=== PATIENT | female | born 1985 | race Caucasian/White ===

== ENCOUNTER 2019-09-10 08:29 | Observation (INO) ==
[2019-09-10] MEDS ORDERED: 0.9 % Sodium Chloride 1,000 ML IVC ONE (08:38)
[2019-09-10] MEDS ORDERED: Ondansetron 4 MG/2 ML VIAL IVP ONE (08:39)
[2019-09-10 09:22] LABS: Basophils % 0.3 %; Hematocrit 42.7 % (35.3-44.9); Hemoglobin 13.8 g/dL (11.5-15.4); Immature Granulocytes % 0.2 % (0-4); Lymphocytes # 0.7 K/mcL (0.6-4.6); Mean Corpuscular HGB Conc 32.3 g/dL (31.6-35.5); Mean Corpuscular Hemoglobin 28.4 pg (28.0-33.3); Mean Corpuscular Volume 87.9 fL (83.0-100.0); Mean Platelet Volume 9.9 fL (9.4-12.4); Monocytes # 0.5 K/mcL (0.0-1.3); Neutrophils # 10.9 K/mcL (1.6-8.9); Platelet Count 237 K/mcL (140-400); Red Blood Count 4.86 M/mcL (3.82-4.97); Red Cell Distribution Width 12.4 % (11.5-14.5); Segmented Neutrophils % 89.5 %; White Blood Count 12.2 K/mcL (4.3-11.1)
[2019-09-10 09:27] LABS: Bacteria,Urine Few per hpf (None-Few); Bilirubin,Urine Negative (Negative); Blood,Urine Trace (Negative); Clarity,Urine Turbid (Clear); Color,Urine Yellow (Yellow); Glucose,Urine (UA) Normal (Normal); Hyaline Casts,Urine Few per lpf (None Seen); Ketones,Urine 10 mg/dL (Negative); Leukocyte Esterase,Urine Small (Negative); Mucus,Urine Few per lpf (None-Few); Nitrite,Urine Positive (Negative); PH,Urine 6.5 pH Units (5.0-8.0); Protein,Urine Trace mg/dL (Neg-Trace); Specific Gravity,Urine 1.026 (1.010-1.025); Squamous Epithelial Cell,Urine Few per hpf (None-Few); Urobilinogen,Urine Normal (Normal)
[2019-09-10 09:37] LABS: Amphetamine Screen,Urine Negative ng/mL (Cutoff=1000); Barbiturate Screen,Urine Negative ng/mL (Cutoff=200); Benzodiazepines Screen,Urine Positive ng/mL (Cutoff=200); Cannabinoid Screen,Urine Negative ng/mL (Cutoff = 50); Cocaine Screen,Urine Negative ng/mL (Cutoff= 300); Opiate Screen,Urine Negative ng/mL (Cutoff=300); Phencyclidine Screen,Urine Negative ng/mL (Cutoff=25)
[2019-09-10 09:57] LABS: Acetaminophen < 10 mcg/mL (10-20); Alanine Aminotransferase 29 Units/L (7-52); Albumin 3.9 g/dL (3.5-5.7); Albumin/Globulin Ratio 1.4 (1.1-2.2); Alkaline Phosphatase 65 Units/L (34-104); Aspartate Amino Transferase 68 Units/L (13-39); BUN/Creatinine Ratio 28 (6-26); Bilirubin,Direct 0.1 mg/dL (0.0-0.2); Bilirubin,Indirect 0.2 mg/dL (0.0-1.0); Bilirubin,Total 0.3 mg/dL (0.3-1.0); Blood Urea Nitrogen 17 mg/dL (6-20); Calcium 8.5 mg/dL (8.6-10.3); Carbon Dioxide 21 mEq/L (23-29); Chloride 109 mEq/L (98-107); Ethanol < 10 mg/dL (Less than 10); Globulin 2.7 g/dL (2.4-3.5); Glucose 146 mg/dL (70-105); Osmolality,Calculated 292 (280-300); Potassium 3.8 mEq/L (3.5-5.1); Salicylate < 2.5 mg/dL (15.0-30.0); Sodium 139 mEq/L (136-145); Thyroid Stimulating Hormone 0.753 mcIU/mL (0.340-5.600); Total Protein 6.6 g/dL (6.4-8.9); eGFR For African Americans > 60 (> 60); eGFR For Non-African Americans > 60 (> 60)
[2019-09-10] MEDS ORDERED: cefTRIAXone 1,000 MG in Water for inj. (sterile) 10 ML IVP ONE (10:13)
[2019-09-10] MEDS ORDERED: Azithromycin 500 MG in 0.9 % Sodium Chloride 250 ML IVPB ONE (10:24)
[2019-09-10] MEDS ORDERED: Ondansetron 4 MG/2 ML VIAL IVP PRN (10:39)
[2019-09-10] MEDS ORDERED: Naloxone 0.4 MG/ML INJ IVP PRN (10:39)
[2019-09-10] MEDS ORDERED: Acetaminophen 325 MG TABLET PO PRN (10:39)
[2019-09-10] MEDS ORDERED: *HR* LORazepam 2 MG/ML VIAL IVP PRN (10:44)
[2019-09-10] MEDS ORDERED: D5% in Water 1,000 ML IVC PRN (11:20)
[2019-09-10] MEDS ORDERED: Dextrose Gel 15 GM/37.5 ML TUBE PO PRN ×2 (11:20)
[2019-09-10] MEDS ORDERED: *HR* Dextrose 50 % in Water (Vial) 50 ML VIAL IVP PRN (11:20)
[2019-09-10] MEDS: Ringers Solution, Lactated 1,000 ML IVC SCH ×2 (14:07→14:11)
[2019-09-10] MEDS: Insulin LISPRO 300 UNITS/3 ML VIAL SQ SCH ×3 (14:10→23:21)
[2019-09-10] MEDS: D5% in Lactated Ringers 1,000 ML IVC SCH ×2 (14:11→20:24)
[2019-09-10 15:18] LABS: VBG Ionized Calcium 1.11 mmol/L (1.15-1.35)
[2019-09-10 15:57] LABS: Alanine Aminotransferase 33 Units/L (7-52); Albumin 3.6 g/dL (3.5-5.7); Alkaline Phosphatase 60 Units/L (34-104); Aspartate Amino Transferase 86 Units/L (13-39); BUN/Creatinine Ratio 29 (6-26); Bilirubin,Total 0.3 mg/dL (0.3-1.0); Blood Urea Nitrogen 15 mg/dL (6-20); Calcium 8.3 mg/dL (8.6-10.3); Carbon Dioxide 21 mEq/L (23-29); Chloride 111 mEq/L (98-107); Glucose 107 mg/dL (70-105); Osmolality,Calculated 291 (280-300); Potassium 3.7 mEq/L (3.5-5.1); Sodium 140 mEq/L (136-145); eGFR For African Americans > 60 (> 60); eGFR For Non-African Americans > 60 (> 60)
[2019-09-10 15:59] LABS: Albumin/Globulin Ratio 1.5 (1.1-2.2); Globulin 2.4 g/dL (2.4-3.5); Magnesium 2.1 mg/dL (1.6-2.6)
[2019-09-10 16:17] LABS: Creatine Kinase 5646 Units/L (30-223)
[2019-09-10] MEDS: Ampicillin/Sulbactam 1,500 MG in 0.9 % Sodium Chloride Mini Bag 100 ML IVPB SCH (23:24)
[2019-09-11] MEDS: D5% in Lactated Ringers 1,000 ML IVC SCH ×2 (03:33→15:00)
[2019-09-11 05:57] LABS: Basophils % 0.5 %; Eosinophils # 0.1 K/mcL (0.0-0.6); Eosinophils % 1.1 %; Hematocrit 37.9 % (35.3-44.9); Hemoglobin 12.3 g/dL (11.5-15.4); Immature Granulocytes % 0.2 % (0-4); Lymphocytes # 1.4 K/mcL (0.6-4.6); Lymphocytes % 16.3 %; Mean Corpuscular HGB Conc 32.5 g/dL (31.6-35.5); Mean Corpuscular Hemoglobin 28.5 pg (28.0-33.3); Mean Corpuscular Volume 87.7 fL (83.0-100.0); Mean Platelet Volume 9.9 fL (9.4-12.4); Monocytes # 0.5 K/mcL (0.0-1.3); Monocytes % 5.8 %; Neutrophils # 6.5 K/mcL (1.6-8.9); Platelet Count 213 K/mcL (140-400); Red Blood Count 4.32 M/mcL (3.82-4.97); Red Cell Distribution Width 12.5 % (11.5-14.5); Segmented Neutrophils % 76.1 %; White Blood Count 8.5 K/mcL (4.3-11.1)
[2019-09-11 05:57] LABS: VBG Ionized Calcium 0.93 mmol/L (1.15-1.35)
[2019-09-11 05:59] LABS: INR 1.1; Prothrombin Time 12.9 Seconds (9.4-12.1)
[2019-09-11] MEDS ORDERED: *HR* Enoxaparin 40 MG/0.4 ML SYRINGE SQ SCH (06:00)
[2019-09-11 06:01] LABS: Activated Partial Thrombo Time 30.2 Seconds (26.0-36.0)
[2019-09-11] MEDS: Insulin LISPRO 300 UNITS/3 ML VIAL SQ SCH (06:26)
[2019-09-11 06:29] LABS: Alanine Aminotransferase 39 Units/L (7-52); Albumin 3.2 g/dL (3.5-5.7); Albumin/Globulin Ratio 1.5 (1.1-2.2); Alkaline Phosphatase 54 Units/L (34-104); Aspartate Amino Transferase 76 Units/L (13-39); BUN/Creatinine Ratio 16 (6-26); Bilirubin,Total 0.3 mg/dL (0.3-1.0); Blood Urea Nitrogen 9 mg/dL (6-20); Calcium 8.3 mg/dL (8.6-10.3); Carbon Dioxide 26 mEq/L (23-29); Chloride 111 mEq/L (98-107); Creatine Kinase 3749 Units/L (30-223); Globulin 2.2 g/dL (2.4-3.5); Glucose 107 mg/dL (70-105); Magnesium 1.6 mg/dL (1.6-2.6); Osmolality,Calculated 293 (280-300); Phosphorous 2.3 mg/dL (2.7-4.5); Potassium 3.6 mEq/L (3.5-5.1); Sodium 142 mEq/L (136-145); Total Protein 5.4 g/dL (6.4-8.9); eGFR For African Americans > 60 (> 60); eGFR For Non-African Americans > 60 (> 60)
[2019-09-11] MEDS: Ampicillin/Sulbactam 1,500 MG in 0.9 % Sodium Chloride Mini Bag 100 ML IVPB SCH ×4 (06:37→23:41)
[2019-09-11] MEDS ORDERED: Calcium Gluconate 1gm/50mL 1 GM/50 ML BAG IVPB PRN (07:05)
[2019-09-11] MEDS ORDERED: *HR* LORazepam 2 MG/ML VIAL IVP PRN (09:17)
[2019-09-11] MEDS ORDERED: Naloxone 0.4 MG/ML INJ IVP PRN (09:17)
[2019-09-11] MEDS ORDERED: D5% in Water 1,000 ML IVC PRN (09:17)
[2019-09-11] MEDS ORDERED: *HR* Dextrose 50 % in Water (Vial) 50 ML VIAL IVP PRN (09:17)
[2019-09-11] MEDS ORDERED: Dextrose Gel 15 GM/37.5 ML TUBE PO PRN ×2 (09:17)
[2019-09-12 01:23] LABS: Basophils # 0.1 K/mcL (0.0-0.2); Basophils % 0.7 %; Eosinophils # 0.1 K/mcL (0.0-0.6); Eosinophils % 0.7 %; Hematocrit 37.9 % (35.3-44.9); Hemoglobin 12.2 g/dL (11.5-15.4); Immature Granulocytes % 0.3 % (0-4); Lymphocytes # 1.9 K/mcL (0.6-4.6); Lymphocytes % 26.5 %; Mean Corpuscular HGB Conc 32.2 g/dL (31.6-35.5); Mean Corpuscular Volume 87.1 fL (83.0-100.0); Mean Platelet Volume 10.4 fL (9.4-12.4); Monocytes # 0.5 K/mcL (0.0-1.3); Monocytes % 7.5 %; Neutrophils # 4.6 K/mcL (1.6-8.9); Platelet Count 228 K/mcL (140-400); Red Blood Count 4.35 M/mcL (3.82-4.97); Red Cell Distribution Width 12.3 % (11.5-14.5); Segmented Neutrophils % 64.3 %; White Blood Count 7.1 K/mcL (4.3-11.1)
[2019-09-12 01:25] LABS: VBG Ionized Calcium 1.14 mmol/L (1.15-1.35)
[2019-09-12 01:59] LABS: Alanine Aminotransferase 50 Units/L (7-52); Albumin 3.6 g/dL (3.5-5.7); Albumin/Globulin Ratio 1.5 (1.1-2.2); Alkaline Phosphatase 56 Units/L (34-104); Aspartate Amino Transferase 89 Units/L (13-39); BUN/Creatinine Ratio 7 (6-26); Bilirubin,Total 0.3 mg/dL (0.3-1.0); Blood Urea Nitrogen 3 mg/dL (6-20); Calcium 8.9 mg/dL (8.6-10.3); Carbon Dioxide 25 mEq/L (23-29); Chloride 110 mEq/L (98-107); Creatine Kinase 3976 Units/L (30-223); Globulin 2.4 g/dL (2.4-3.5); Glucose 108 mg/dL (70-105); Magnesium 1.7 mg/dL (1.6-2.6); Osmolality,Calculated 291 (280-300); Phosphorous 2.6 mg/dL (2.7-4.5); Potassium 3.4 mEq/L (3.5-5.1); Sodium 142 mEq/L (136-145); eGFR For African Americans > 60 (> 60); eGFR For Non-African Americans > 60 (> 60)
[2019-09-12] MEDS: D5% in Lactated Ringers 1,000 ML IVC SCH ×2 (02:20→10:30)
[2019-09-12] MEDS: Ampicillin/Sulbactam 1,500 MG in 0.9 % Sodium Chloride Mini Bag 100 ML IVPB SCH ×3 (05:30→16:58)
[2019-09-12] MEDS: *HR* Enoxaparin 40 MG/0.4 ML SYRINGE SQ SCH (06:06)
[2019-09-12] MEDS ORDERED: 0.9 % Sodium Chloride 1,000 ML IVC SCH (11:30)
[2019-09-12] MEDS: Acetaminophen 325 MG TABLET PO PRN (11:34)
[2019-09-12] MEDS: Ondansetron 4 MG/2 ML VIAL IVP PRN (16:58)
[2019-09-13] MEDS: Ampicillin/Sulbactam 1,500 MG in 0.9 % Sodium Chloride Mini Bag 100 ML IVPB SCH ×2 (00:02→04:57)
[2019-09-13] MEDS: Ondansetron 4 MG/2 ML VIAL IVP PRN ×2 (01:49→10:36)
[2019-09-13] MEDS: *HR* Enoxaparin 40 MG/0.4 ML SYRINGE SQ SCH (03:57)
[2019-09-13 08:39] LABS: Basophils # 0.1 K/mcL (0.0-0.2); Basophils % 0.6 %; Eosinophils % 0.3 %; Hematocrit 41.7 % (35.3-44.9); Hemoglobin 13.5 g/dL (11.5-15.4); Immature Granulocytes % 0.1 % (0-4); Lymphocytes # 1.7 K/mcL (0.6-4.6); Lymphocytes % 21.9 %; Mean Corpuscular HGB Conc 32.4 g/dL (31.6-35.5); Mean Corpuscular Hemoglobin 28.4 pg (28.0-33.3); Mean Corpuscular Volume 87.8 fL (83.0-100.0); Mean Platelet Volume 10.2 fL (9.4-12.4); Monocytes # 0.5 K/mcL (0.0-1.3); Monocytes % 6.2 %; Neutrophils # 5.5 K/mcL (1.6-8.9); Platelet Count 217 K/mcL (140-400); Red Blood Count 4.75 M/mcL (3.82-4.97); Red Cell Distribution Width 12.3 % (11.5-14.5); Segmented Neutrophils % 70.9 %; White Blood Count 7.8 K/mcL (4.3-11.1)
[2019-09-13 08:59] LABS: Alanine Aminotransferase 45 Units/L (7-52); Albumin/Globulin Ratio 1.5 (1.1-2.2); Alkaline Phosphatase 57 Units/L (34-104); Aspartate Amino Transferase 47 Units/L (13-39); BUN/Creatinine Ratio 9 (6-26); Bilirubin,Total 0.3 mg/dL (0.3-1.0); Blood Urea Nitrogen 5 mg/dL (6-20); Calcium 8.8 mg/dL (8.6-10.3); Carbon Dioxide 24 mEq/L (23-29); Chloride 111 mEq/L (98-107); Globulin 2.6 g/dL (2.4-3.5); Glucose 104 mg/dL (70-105); Osmolality,Calculated 294 (280-300); Potassium 3.4 mEq/L (3.5-5.1); Sodium 143 mEq/L (136-145); Total Protein 6.6 g/dL (6.4-8.9); eGFR For African Americans > 60 (> 60); eGFR For Non-African Americans > 60 (> 60)
[2019-09-13 11:25] VITALS: BP 114/71
[2019-09-13] MEDS: Acetaminophen 325 MG TABLET PO PRN (11:48)
== END 2019-09-13 12:13 ==
LOC: EMEROOARM 08:29 → 3BNU 08:29 → ICNU 11:44 → 3BNU 09-11 11:20
PROVIDERS: ADMIT Internal Medicine; ATTEND Pediatrics

== ENCOUNTER 2019-09-13 12:08 | Inpatient (IN) ==
[2019-09-13] MEDS ORDERED: haloperidoL 5 MG TABLET PO PRN (12:19)
[2019-09-13] MEDS ORDERED: *HR* LORazepam 1 MG TABLET PO PRN (12:19)
[2019-09-13] MEDS ORDERED: *HR* LORazepam 2 MG/ML VIAL IM PRN (12:19)
[2019-09-13] MEDS ORDERED: MOM Conc 10 ML UD.LIQ PO PRN (12:19)
[2019-09-13] MEDS ORDERED: Haloperidol Lactate 5 MG/ML VIAL IM PRN (12:19)
[2019-09-13] MEDS ORDERED: Mag Hydrox/Al Hydrox/Simeth 30 ML UDC PO PRN (12:19)
[2019-09-13] MEDS: hydrOXYzine pamoate 25 MG CAPSULE PO PRN ×2 (13:48→20:30)
[2019-09-13] MEDS: traZODone 50 MG TABLET PO PRN ×2 (20:30→22:44)
[2019-09-13] MEDS: Ibuprofen 400 MG TABLET PO PRN (20:30)
[2019-09-14] MEDS: hydrOXYzine pamoate 25 MG CAPSULE PO PRN ×3 (06:53→21:50)
[2019-09-14] MEDS: Ibuprofen 400 MG TABLET PO PRN ×2 (08:39→18:57)
[2019-09-14] MEDS: Acetaminophen 325 MG TABLET PO PRN ×2 (14:18→21:50)
[2019-09-15] MEDS: hydrOXYzine pamoate 25 MG CAPSULE PO PRN (05:02)
[2019-09-15 09:42] VITALS: BP 102/64
== END 2019-09-15 11:15 | disposition home or self-care (01) | DRG 817 ==
LOC: 1ANU 12:08 → SUATTDRO 12:08
PROVIDERS: ADMIT Psychiatry & Neurology Psychiatry; ATTEND Psychiatry & Neurology Psychiatry